=== PATIENT | male | born 1990 | race Caucasian/White ===

== ENCOUNTER 2017-12-21 23:07 | Emergency (ER) | payer OTHER, SELFPAY ==
[2017-12-21] MEDS ORDERED: ONDANSETRON 4 MG/2 ML VIAL ONE (23:20)
[2017-12-21] MEDS ORDERED: MORPHINE 4 MG/ML SYR ONE (23:20)
[2017-12-22] MEDS ORDERED: NA CHLORIDE 0.9% 1,000 ML ONE (00:18)
[2017-12-22] MEDS ORDERED: KETOROLAC 30 MG/ML INJ ONE (00:18)
[2017-12-22] MEDS ORDERED: MORPHINE 4 MG/ML SYR ONE (00:28)
[2017-12-22 00:35] LABS: Absolute Lymphocytes (CBC) 1.7 K/uL (0.7-4.9); Basophils % 0.6 % (0-1.3); Eosinophils % 2.4 % (0-4.4); Hematocrit 43.8 % (39.6-49.0); MCH 28.6 pg (27.0-35.0); MCV 84.1 fL (80-100); MPV 8.5 fL (7.6-11.3); Monocytes % 7.3 % (3.3-12.3); RBC Red Blood Cell Count 5.21 M/uL (4.33-5.43)
[2017-12-22 00:50] LABS: Albumin 4.3 g/dL (3.2-5.5); Bilirubin Total 0.8 mg/dL (0.3-1.2); Protein, Total 7.7 g/dL (6.0-8.3)
--- NOTE | 2017-12-22 01:07 | EDPHYS ---
Physician Documentation [facility] Name: Adrian Linares II Age: 27 yrs Sex: Male : 1990 Arrival Date: 12/21/2017 Time: 23:12 Bed 2 Private MD: ED Physician Leo Parker HPI: 12/22 00:14 This 27 yrs old Male presents to ER via Wheelchair with complaints of Arm lilian Injury. 00:14 The patient or guardian complains of decreased range of motion, injury. The complaints lilian affect the left bicep, left tricep and left elbow. Context: The problem was sustained at home. Onset: The symptoms/episode began/occurred just prior to arrival. Treatment prior to arrival includes: no previous treatment. Modifying factors: The symptoms are alleviated by remaining still, the symptoms are aggravated by movement, lifting weight, bending arm. Associated signs and symptoms: The patient has no apparent associated signs or symptoms. Severity of symptoms: At their worst the symptoms were moderate, severe, in the emergency department the symptoms are unchanged. The patient has not experienced similar symptoms in the past. Historical: - Allergies: 12/21 23:14 No Known Allergies; tl2 - Home Meds: 23:14 None [Active]; tl2 - PMHx: 23:14 None; tl2 - PSHx: 23:14 right knee surgery; tl2 - Immunization history:: Adult Immunizations up to date. - Social history:: Smoking status: Patient/guardian denies using tobacco. - Ebola Screening: : No symptoms or risks identified at this time. - Family history:: not pertinent. ROS: 12/22 00:14 Constitutional: Negative for fever, chills, and weight loss, Eyes: Negative for injury, lilian pain, redness, and discharge, ENT: Negative for injury, pain, and discharge, Neck: Negative for injury, pain, and swelling, Cardiovascular: Negative for chest pain, palpitations, and edema, Respiratory: Negative for shortness of breath, cough, wheezing, and pleuritic chest pain, Abdomen/GI: Negative for abdominal pain, nausea, vomiting, diarrhea, and constipation, Back: Negative for injury and pain, : Negative for injury, bleeding, discharge, and swelling, Skin: Negative for injury, rash, and discoloration, Neuro: Negative for headache, weakness, numbness, tingling, and seizure, Psych: Negative for depression, anxiety, suicide ideation, homicidal ideation, and hallucinations, Allergy/Immunology: Negative for hives, rash, and allergies, Endocrine: Negative for neck swelling, polydipsia, polyuria, polyphagia, and marked weight changes, Hematologic/Lymphatic: Negative for swollen nodes, abnormal bleeding, and unusual bruising. MS/extremity: Positive for injury or acute deformity, decreased range of motion, pain, swelling, tenderness, of the left bicep and left tricep. Exam: 00:14 Constitutional: This is a well developed, well nourished patient who is awake, alert, lilian and in no acute distress. Head/Face: Normocephalic, atraumatic. Eyes: Pupils equal round and reactive to light, extra-ocular motions intact. Lids and lashes normal. Conjunctiva and sclera are non-icteric and not injected. Cornea within normal limits. Periorbital areas with no swelling, redness, or edema. ENT: Nares patent. No nasal discharge, no septal abnormalities noted. Tympanic membranes are normal and external auditory canals are clear. Oropharynx with no redness, swelling, or masses, exudates, or evidence of obstruction, uvula midline. Mucous membranes moist. Neck: Trachea midline, no thyromegaly or masses palpated, and no cervical lymphadenopathy. Supple, full range of motion without nuchal rigidity, or vertebral point tenderness. No Meningismus. Chest/axilla: Normal chest wall appearance and motion. Nontender with no deformity. No lesions are appreciated. Cardiovascular: Regular rate and rhythm with a normal S1 and S2. No gallops, murmurs, or rubs. Normal PMI, no JVD. No pulse deficits. Respiratory: Lungs have equal breath sounds bilaterally, clear to auscultation and percussion. No rales, rhonchi or wheezes noted. No increased work of breathing, no retractions or nasal flaring. Abdomen/GI: Soft, non-tender, with normal bowel sounds. No distension or tympany. No guarding or rebound. No evidence of tenderness throughout. Back: No spinal tenderness. No costovertebral tenderness. Full range of motion. Male : Normal genitalia with no discharge or lesions. Skin: Warm, dry with normal turgor. Normal color with no rashes, no lesions, and no evidence of cellulitis. Neuro: Awake and alert, GCS 15, oriented to person, place, time, and situation. Cranial nerves II-XII grossly intact. Motor strength 5/5 in all extremities. Sensory grossly intact. Cerebellar exam normal. Normal gait. Psych: Awake, alert, with orientation to person, place and time. Behavior, mood, and affect are within normal limits. 00:14 Musculoskeletal/extremity: Extremities: noted in the left bicep, left antecubital area and left tricep: decreased ROM, pain, swelling, tenderness. Vital Signs: 12/21 23:14 BP 165 / 98; Pulse 83; Resp 18; Temp 99.1(O); Pulse Ox 100% on R/A; Weight 104.33 kg; tl2 Height 6 ft. 0 in. (182.88 cm); Pain 8/10; 23:55 BP 131 / 91; Pulse 84; Resp 17; Pulse Ox 100% on R/A; rv 12/22 00:28 BP 131 / 91; Pulse 74; Resp 18; Pulse Ox 100% on R/A; tl2 02:18 BP 147 / 82; Pulse 86; Resp 18; Pulse Ox 100% on R/A; tl2 12/21 23:14 Body Mass Index 31.19 (104.33 kg, 182.88 cm) tl2 MDM: 12/21 23:[address] [facility] 12/22 00:14 Data reviewed: vital signs, nurses notes, lab test result(s), radiologic studies, plain lilian films. 12/22 00:12 Order name: CBC with Diff [facility] 12/22 00:12 Order name: Comprehensive Metabolic Panel; Complete Time: 00:57 [facility] 12/21 23:24 Order name: Humerus Left XRAY 12/22 00:12 Order name: CBC with Automated Diff; Complete Time: 00:57 EDMS 12/22 00:12 Order name: Splint; Complete Time: 01:40 [facility] 12/22 00:12 Order name: Ice pack; Complete Time: 00:29 [facility] Administered Medications: 12/21 23:22 Drug: Zofran 4 mg Route: IVP; Site: right wrist; bb 12/22 00:00 Follow up: Response: No adverse reaction 2 12/21 23:23 Drug: morphine 4 mg Route: IVP; Site: right wrist; 12/22 00:00 Follow up: Response: No adverse reaction; Pain is decreased tl2 00:26 Drug: NS 0.9% 1000 ml Route: IV; Rate: 1 bolus; Site: right forearm; rv 02:20 Follow up: IV Status: Completed infusion; IV Intake: 1000ml tl2 00:26 Drug: TORadol 30 mg Route: IVP; Site: right forearm; rv 02:20 Follow up: Response: No adverse reaction; Pain is decreased tl2 01:20 Drug: morphine 4 mg Route: IVP; Site: right hand; tl2 02:21 Follow up: Response: No adverse reaction; Pain is decreased tl2 Disposition: 12/22/17 01:07 Discharged to Home. Impression: Displaced comminuted fracture of shaft of humerus, left arm, Fall due to bumping against object. - Condition is Stable. - Discharge Instructions: Humerus Fracture, Treated with Immobilization. - Prescriptions for Ibuprofen 600 mg Oral Tablet - take 1 tablet by ORAL route every 6 hours As needed take with food; 21 tablet. Tylenol- Codeine #3 300-30 mg Oral Tablet - take 2 tablets by ORAL route every 6 hours As needed; 30 tablet. - Medication Reconciliation Form, Thank You Letter, Antibiotic Education, Prescription Opioid Use form. - Follow up: Yohannes Covarrubias MD; When: 2 - 3 days; Reason: Recheck today's complaints, Re-evaluation by your physician. - Problem is new. - Symptoms have improved. Signatures: Dispatcher [employer] [facility] Leo Parker MD MD cha Ballard, Brenda, RN RN bb Lashay Ramos RN RN tl2 Robert Alvarenga RN RN rv Corrections: (The following items were deleted from the chart) 00:02 0616 23:24 Humerus Right+RAD.RAD.BRZ ordered. [facility] 12/22 02:21 01:07 12/22/2017 01:07 Discharged to Home. Impression: Displaced comminuted fracture of tl2 shaft of humerus, left arm; Fall due to bumping against object. Condition is Stable. Forms are Medication Reconciliation Form, Thank You Letter, Antibiotic Education, Prescription Opioid Use. Follow up: Dr. Yohannes Covarrubias; When: 2 - 3 days; Reason: Recheck today's complaints, Re-evaluation by your physician. Problem is new. Symptoms have improved. lilian
--- NOTE | 2017-12-22 01:07 | ER ---
Nurse's Notes [facility] Name: Adrian Linares II Age: 27 yrs Sex: Male : 1990 Arrival Date: 12/21/2017 Time: 23:12 Bed 2 Private MD: Diagnosis: Displaced comminuted fracture of shaft of humerus, left arm;Fall due to bumping against object Presentation: 12/21 23:13 Presenting complaint: Patient states: I tripped and fell down a couple steps and think tl2 I broke my left arm. Transition of care: patient was not received from another setting of care. Onset of symptoms was December 21, 2017 at 22:00. Risk Assessment: Do you want to hurt yourself or someone else? Patient reports no desire to harm self or others. Initial Sepsis Screen: Does the patient meet any 2 criteria? No. Patient's initial sepsis screen is negative. Does the patient have a suspected source of infection? No. Patient's initial sepsis screen is negative. Care prior to arrival: None. 23:13 Method Of Arrival: Wheelchair tl2 23:13 Acuity: TAE 3 tl2 Triage Assessment: 23:14 General: Appears in no apparent distress. uncomfortable, Behavior is calm, cooperative, tl2 appropriate for age. Pain: Complains of pain in left arm Pain currently is 8 out of 10 on a pain scale. Neuro: Level of Consciousness is awake, alert, obeys commands, Oriented to person, place, time, situation. Cardiovascular: Denies chest pain. Respiratory: Airway is patent Respiratory effort is even, unlabored, Respiratory pattern is regular, symmetrical. Musculoskeletal: Circulation, motion, and sensation intact. Injury Description: Deformity sustained to left arm is concave. Historical: - Allergies: 23:14 No Known Allergies; tl2 - Home Meds: 23:14 None [Active]; tl2 - PMHx: 23:14 None; tl2 - PSHx: 23:14 right knee surgery; tl2 - Immunization history:: Adult Immunizations up to date. - Social history:: Smoking status: Patient/guardian denies using tobacco. - Ebola Screening: : No symptoms or risks identified at this time. - Family history:: not pertinent. Screenin:16 Abuse screen: Denies threats or abuse. Nutritional screening: No deficits noted. tl2 Tuberculosis screening: No symptoms or risk factors identified. Fall Risk None identified. Assessment: 23:16 General: see triage assessment. tl2 12/22 00:28 Reassessment: Patient appears in no apparent distress at this time. Patient and/or tl2 family updated on plan of care and expected duration. Pain level reassessed. Patient is alert, oriented x 3, equal unlabored respirations, skin warm/dry/pink. Ice pack provided. 02:18 Reassessment: Patient appears in no apparent distress at this time. Patient and/or tl2 family updated on plan of care and expected duration. Pain level reassessed. Patient is alert, oriented x 3, equal unlabored respirations, skin warm/dry/pink. Pt verbalized understanding of discharge instructions, need for follow up and prescription usage. Informed that xrays were sent to Dr. Covarrubias Patient states feeling better. Vital Signs: 12/21 23:14 BP 165 / 98; Pulse 83; Resp 18; Temp 99.1(O); Pulse Ox 100% on R/A; Weight 104.33 kg; tl2 Height 6 ft. 0 in. (182.88 cm); Pain 8/10; 23:55 BP 131 / 91; Pulse 84; Resp 17; Pulse Ox 100% on R/A; rv 12/22 00:28 BP 131 / 91; Pulse 74; Resp 18; Pulse Ox 100% on R/A; tl2 02:18 BP 147 / 82; Pulse 86; Resp 18; Pulse Ox 100% on R/A; tl2 12/21 23:14 Body Mass Index 31.19 (104.33 kg, 182.88 cm) tl2 ED Course: 12/21 23:12 Patient arrived in ED. tl2 23:14 Triage completed. tl2 23:14 Arm band placed on right wrist. tl2 23:16 Patient has correct armband on for positive identification. Bed in low position. Call tl2 light in reach. Side rails up X2. Adult w/ patient. 23:16 Inserted saline lock: 18 gauge in right hand, using aseptic technique. tl2 23:29 Lashay Ramos, PASCUAL is Primary Nurse. tl2 23:31 Leo Parker MD is Attending Physician. [facility] 23:59 X-ray completed. Portable x-ray completed in exam room. Patient tolerated procedure la2 poorly. 12/22 00:02 Humerus Left XRAY In Process Unspecified. EDMS 00:29 CBC with Diff Sent. tl2 00:29 Comprehensive Metabolic Panel Sent. tl2 01:05 Yohannes Covarrubias MD is Referral Physician. [facility] 02:18 No provider procedures requiring assistance completed. IV discontinued, intact, tl2 bleeding controlled, No redness/swelling at site. Pressure dressing applied. Administered Medications: 12/21 23:22 Drug: Zofran 4 mg Route: IVP; Site: right wrist; bb 12/22 00:00 Follow up: Response: No adverse reaction tl2 12/21 23:23 Drug: morphine 4 mg Route: IVP; Site: right wrist; bb 12/22 00:00 Follow up: Response: No adverse reaction; Pain is decreased tl2 00:26 Drug: NS 0.9% 1000 ml Route: IV; Rate: 1 bolus; Site: right forearm; rv 02:20 Follow up: IV Status: Completed infusion; IV Intake: 1000ml tl2 00:26 Drug: TORadol 30 mg Route: IVP; Site: right forearm; rv 02:20 Follow up: Response: No adverse reaction; Pain is decreased tl2 01:20 Drug: morphine 4 mg Route: IVP; Site: right hand; tl2 02:21 Follow up: Response: No adverse reaction; Pain is decreased tl2 Intake: 02:20 IV: 1000ml; Total: 1000ml. tl2 Outcome: 01:07 Discharge ordered by . [facility] 02:18 Discharged to home ambulatory, with friend. tl2 02:18 Condition: stable 02:18 Discharge instructions given to patient, Instructed on discharge instructions, follow up and referral plans. medication usage, Demonstrated understanding of instructions, follow-up care, medications, splint care, Prescriptions given X 2. 02:21 Patient left the ED. tl2 Signatures: Dispatcher [employer] Leo Hammonds MD MD cha Ballard, Brenda RN RN Lashay Lainez RN RN tl2 Evangelina Schafer la2 Robert Alvarenga RN RN rv
--- NOTE | 2017-12-22 12:15 | RAD REPORT ---
EXAM DESCRIPTION: RAD - Humerus Left - 12/22/2017 12:02 am CLINICAL HISTORY: Pain;Deformity Trauma history COMPARISON: No comparisons FINDINGS: Fracture of the distal shaft of the left humerus is seen with [id number] angulation. Moderate adjacent soft tissue swelling is evident. No dislocation seen.
== END 2017-12-22 02:21 | disposition home or self-care (01) ==
LOC: ER 23:07
DX: S42.352A Displaced comminuted fracture of shaft of humerus, left arm, initial encounter for closed fracture (principal); W10.9XXA Fall (on) (from) unspecified stairs and steps, initial encounter; Y92.009 Unspecified place in unspecified non-institutional (private) residence as the place of occurrence of the external cause
CPT/HCPCS: 36415; 80053; 85025; 99284; J2405; J7030